=== PATIENT | female | born 1935 | race Caucasian/White ===

== ENCOUNTER 2021-02-22 07:45 | Inpatient (IN) | payer OTHER ==
[~2021-02-22] VITALS: Ht 154.9 cm; Wt 83.9 kg
[~2021-02-22 07:45] MED LIST: INTEGRA PLUS C1 EACH PO; OXYC1TAB9 PO; XARELTO10 MG PO
[2021-02-22] MEDS ORDERED: NEURONTIN600 MG PO (09:31)
[2021-02-22] MEDS ORDERED: LEVOTHYROXINE25 MCG (09:31)
[2021-02-22] MEDS ORDERED: LISINOPRIL1 GM (09:32)
[2021-02-22] MEDS ORDERED: MULTI VITAMIN1 EACH PO (09:32)
[2021-02-22] MEDS ORDERED: CATAFLAN (09:33)
[2021-02-22] MEDS ORDERED: SYNVASTATIN (09:34)
[2021-02-22] MEDS ORDERED: [UNRECOGNIZED DRUG - OTHER] (09:35)
[2021-02-27] MEDS ORDERED: SIMVASTATIN5 MG (09:00)
[2021-02-27] MEDS ORDERED: ZIPSOR25 MG (09:00)
[2021-02-27] MEDS ORDERED: PROZAC10 M1 (09:01)
[2021-03-02] MEDS ORDERED: OXYC1TAB9 PO (12:21)
[2021-03-02] MEDS ORDERED: INTEGRA PLUS C1 EACH PO (12:21)
[2021-03-02] MEDS ORDERED: BACTRIM DS TAB1 EACH PO (12:21)
[2021-03-02] MEDS ORDERED: XARELTO10 MG PO (12:21)
== END 2021-03-02 18:19 | disposition home or self-care (01) | DRG 470 ==
LOC: O/R 02-27 05:48 → SURG 02-27 07:45 → SURH 02-27 16:18
PROVIDERS: ADMIT Orthopaedic Surgery Sports Medicine; ATTEND Orthopaedic Surgery Sports Medicine
PROC: 0QS904Z Reposition Left Femoral Shaft with Internal Fixation Device, Open Approach (ICD-10-PCS; 2021-02-27)
PROC: 0SRB0J9 Replacement of Left Hip Joint with Synthetic Substitute, Cemented, Open Approach (ICD-10-PCS; principal; 2021-02-27 12:15)
DX: M16.12 Unilateral primary osteoarthritis, left hip (principal); S72.452A Displaced supracondylar fracture without intracondylar extension of lower end of left femur, initial encounter for closed fracture; X58.XXXA Exposure to other specified factors, initial encounter; Y93.89 Activity, other specified; Y92.89 Other specified places as the place of occurrence of the external cause; Y99.8 Other external cause status; Z20.822 Contact with and (suspected) exposure to COVID-19; I10 Essential (primary) hypertension; F32.A Depression, unspecified; E03.8 Other specified hypothyroidism